=== PATIENT | female | born 1970 | race Caucasian/White ===

== ENCOUNTER 2021-01-16 07:45 | Inpatient (IN) | payer SELFPAY ==
[2021-01-16] MEDS ORDERED: Tamsulosin HCl 0.4 MG CAP PO SCH ×2 (09:00→17:00)
[2021-01-16 15:54] VITALS: BMI 34.8
[2021-01-16] MEDS: Sodium Chloride 0.9% 1,000 ML IV SCH (17:20)
[2021-01-16] MEDS ORDERED: Ketorolac Tromethamine 30 MG/ML VIAL IVP PRN (17:37)
[2021-01-16] MEDS ORDERED: Acetaminophen 325 MG TAB PO PRN (17:37)
[2021-01-16] MEDS ORDERED: Ondansetron PF 4 MG/2 ML Vial IVP PRN (17:37)
[2021-01-16] MEDS: Polyethylene Glycol 3350 17 GM Packet PO SCH (21:10)
[2021-01-16 23:40] LABS: SARS-CoV-2 PCR by NAA Not Detected (NotDetected)
[2021-01-17] MEDS: Sodium Chloride 0.9% 1,000 ML IV SCH ×4 (01:47→20:53)
[2021-01-17] MEDS: Levothyroxine 150 MCG TAB PO SCH (06:03)
[2021-01-17 06:19] LABS: Hemoglobin 12.2 g/dL (12.0-16.0); Mean Corpuscular HGB CONC 35.6 g/dL (32.0-36.0); Mean Corpuscular Hemoglobin 34.1 pg (27.0-31.0); Mean Corpuscular Volume 95.9 fL (78.0-98.0); Mean Platelet Volume 7.2 fL (7.4-10.4); Platelet Count 174 thou/uL (130-400); RBC Distribution Width 12.1 % (11.5-14.5); Red Blood Cell (RBC) Count 3.56 mill/uL (4.20-5.40); White Blood Cell (WBC) Count 6.6 thou/uL (4.8-10.8)
[2021-01-17 06:43] LABS: Anion Gap 12 mmol/L (10-20); BUN (Urea Nitrogen) 10 mg/dL (7.0-18.7); Calc. Creatinine Clearance 74 mL/min (70-130); Carbon Dioxide 21 mmol/L (22-29); Chloride 112 mmol/L (98-107); Potassium 3.8 mmol/L (3.5-5.1); Sodium 141 mmol/L (136-145)
[2021-01-17 06:44] LABS: Calcium 8.2 mg/dL (7.8-10.44); Cholesterol 221 mg/dl (< 200 Desired); Glucose 91 mg/dL (70-105); HDL Cholesterol 44 mg/dL (>60 Neg Risk); LDL Cholesterol, Calculated 156 mg/dL; Triglycerides 105 mg/dL (Less than 150)
[2021-01-17] MEDS ORDERED: Tamsulosin HCl 0.4 MG CAP PO SCH (09:00)
[2021-01-17 10:05] LABS: Bilirubin Negative (Negative); Blood, Urine 3+ (Negative); Clarity Turbid (Clear); Glucose, Urine (Dipstick) Normal (Negative); Ketone, Urine Negative (Negative); Leukocyte Negative Leu/uL (Negative); Nitrite Negative (Negative); Protein, Urine (Dipstick) 20 mg/dL (Neg-Trace); RBC/HPF Greater than 50 HPF (0-3); Specific Gravity, Urine 1.022 (1.002-1.036); Squamous Epithelial 0-3 HPF (0-3); Urobilinogen Normal mg/dL (Less than 2)
[2021-01-17 10:13] LABS: Bacteria/HPF 1+ HPF (None Seen); Yeast-Budding Rare HPF (None Seen)
[2021-01-17 11:03] LABS: Bacteria/HPF None Seen HPF (None Seen); Bilirubin Negative (Negative); Blood, Urine 2+ (Negative); Clarity Clear (Clear); Glucose, Urine (Dipstick) Normal (Negative); Ketone, Urine Negative (Negative); Leukocyte Negative Leu/uL (Negative); Nitrite Negative (Negative); Protein, Urine (Dipstick) Negative (Neg-Trace); RBC/HPF 0-3 HPF (0-3); Specific Gravity, Urine 1.006 (1.002-1.036); Squamous Epithelial 0-3 HPF (0-3); Urobilinogen Normal mg/dL (Less than 2); WBC/HPF 0-3 HPF (0-3); pH, Urine 5.5 (5.0-9.0)
[2021-01-17] MEDS ORDERED: Iothalamate Meglumine 60% 50 ML VIAL FS ONE (13:16)
[2021-01-17] MEDS ORDERED: SUGAMMADEX SODIUM 200 MG/2 ML VIAL ONE ×2 (13:19→14:32)
[2021-01-17] MEDS ORDERED: Fentanyl 100 MCG/2 ML VIAL ONE (13:19)
[2021-01-17] MEDS ORDERED: Midazolam HCl 2 mg/2 ml Vial ONE ×2 (13:47→13:48)
[2021-01-17] MEDS ORDERED: Labetalol HCl 100 MG/20 ML VIAL ONE ×2 (13:48→13:58)
[2021-01-17] MEDS ORDERED: Levofloxacin 500 mg/D5W 100 ml Premix Bag ONE (13:53)
[2021-01-17] MEDS ORDERED: Ondansetron PF 4 MG/2 ML Vial ONE (13:58)
[2021-01-17] MEDS ORDERED: PROPOFOL 200 MG/20 ML VIAL ONE (13:58)
[2021-01-17] MEDS ORDERED: Rocuronium Bromide 10 MG/ML (10ML VIAL) ONE (13:58)
[2021-01-17] MEDS ORDERED: Dexamethasone 20 MG/5 ML VIAL ONE (13:58)
[2021-01-17] MEDS ORDERED: cefTRIAXone\\ROCEPHIN 2 GM VIAL ONE (14:10)
[2021-01-17] MEDS ORDERED: Sodium Chloride 0.9% 100 ML ONE (14:10)
[2021-01-17] MEDS ORDERED: Phenazopyridine HCl 97.5 MG TABLET PO PRN (14:33)
[2021-01-17] MEDS ORDERED: Oxybutynin 5 MG TAB PO PRN (14:33)
[2021-01-17] MEDS ORDERED: HYDROcodone/Acetaminophen 5/325 mg Tablet PO PRN ×2 (14:33)
[2021-01-17] MEDS: cefTRIAXone\\ROCEPHIN 2 GM in Sodium Chloride 0.9% 100 ML IVPB SCH (16:16)
[2021-01-17] MEDS: Polyethylene Glycol 3350 17 GM Packet PO SCH (20:49)
[2021-01-18] MEDS: Levothyroxine 150 MCG TAB PO SCH (05:42)
[2021-01-18 06:47] LABS: Anion Gap 9 mmol/L (10-20); BUN (Urea Nitrogen) 10 mg/dL (7.0-18.7); Calc. Creatinine Clearance 83 mL/min (70-130); Calcium 8.3 mg/dL (7.8-10.44); Carbon Dioxide 25 mmol/L (22-29); Chloride 112 mmol/L (98-107); Glucose 111 mg/dL (70-105); Potassium 3.8 mmol/L (3.5-5.1); Sodium 142 mmol/L (136-145)
[2021-01-18] MEDS: Sodium Chloride 0.9% 1,000 ML IV SCH (08:34)
[2021-01-18 08:47] VITALS: BP 138/85; TEMP 97.7
[2021-01-18] MEDS: cefTRIAXone\\ROCEPHIN 2 GM in Sodium Chloride 0.9% 100 ML IVPB SCH (12:32)
== END 2021-01-18 14:11 | disposition home or self-care (01) | DRG 661 ==
LOC: T4-A 07:45
PROVIDERS: ADMIT Internal Medicine; ATTEND Internal Medicine
PROC: 0T778DZ Dilation of Left Ureter with Intraluminal Device, Via Natural or Artificial Opening Endoscopic (ICD-10-PCS; principal; 2021-01-17)
PROC: BT1F1ZZ Fluoroscopy of Left Kidney, Ureter and Bladder using Low Osmolar Contrast (ICD-10-PCS; 2021-01-17)
DX: N13.2 Hydronephrosis with renal and ureteral calculous obstruction (principal); E86.0 Dehydration; Z20.822 Contact with and (suspected) exposure to COVID-19; E03.9 Hypothyroidism, unspecified; E66.9 Obesity, unspecified; N17.9 Acute kidney failure, unspecified; Z79.890 Hormone replacement therapy; Z68.34 Body mass index [BMI] 34.0-34.9, adult
CPT/HCPCS: 36415; 74420; 76770; 80048; 80061; 81001; 83036; 84439; 84443; 85027; 87086; C2617; J0696; J1100; J1885; J1956; J2250; J2405; J2704; J3010; J3490; Q9961; U0003; U0005

== ENCOUNTER 2021-02-01 07:46 | Day surgery (SDC) | payer OTHER, SELFPAY ==
[2021-01-31 11:15] VITALS: BMI 44.4
[2021-02-01] MEDS ORDERED: Sodium Chloride 0.9% 100 ML ONE (08:19)
[2021-02-01] MEDS ORDERED: cefTRIAXone\\ROCEPHIN 2 GM VIAL ONE (08:19)
[2021-02-01] MEDS ORDERED: Midazolam HCl 2 mg/2 ml Vial ONE ×2 (08:50→10:15)
[2021-02-01] MEDS ORDERED: Ketorolac Tromethamine 30 MG/ML VIAL ONE (09:40)
[2021-02-01] MEDS ORDERED: Ondansetron PF 4 MG/2 ML Vial ONE ×2 (09:40→13:55)
[2021-02-01] MEDS ORDERED: PROPOFOL 200 MG/20 ML VIAL ONE (09:40)
[2021-02-01] MEDS ORDERED: Dexamethasone 20 MG/5 ML VIAL ONE (09:40)
[2021-02-01] MEDS ORDERED: Lidocaine 1% PF 5 ML VIAL ONE (09:40)
[2021-02-01] MEDS ORDERED: Glycopyrrolate 0.2 MG/ML 5 ML SYRINGE ONE (09:40)
[2021-02-01] MEDS ORDERED: Rocuronium Bromide 10 MG/ML (10ML VIAL) ONE (09:40)
[2021-02-01] MEDS ORDERED: Fentanyl 100 MCG/2 ML VIAL ONE (10:15)
[2021-02-01] MEDS ORDERED: SUGAMMADEX SODIUM 200 MG/2 ML VIAL ONE (10:22)
[2021-02-01] MEDS ORDERED: Iothalamate Meglumine 60% 30 ML VIAL FS ONE (10:44)
[2021-02-01] MEDS ORDERED: Phenazopyridine HCl 100 MG TAB ONE (11:39)
[2021-02-01] MEDS ORDERED: Oxybutynin 5 MG TAB ONE (11:39)
== END 2021-02-01 15:00 | disposition home or self-care (01) ==
LOC: SDC 07:46
PROVIDERS: ATTEND Urology
PROC: 0TC78ZZ Extirpation of Matter from Left Ureter, Via Natural or Artificial Opening Endoscopic (ICD-10-PCS; principal; 2021-02-01)
PROC: 0TC48ZZ Extirpation of Matter from Left Kidney Pelvis, Via Natural or Artificial Opening Endoscopic (ICD-10-PCS; principal; 2021-02-01)
PROC: 0T778DZ Dilation of Left Ureter with Intraluminal Device, Via Natural or Artificial Opening Endoscopic (ICD-10-PCS; principal; 2021-02-01)
DX: N13.2 Hydronephrosis with renal and ureteral calculous obstruction (principal); N28.1 Cyst of kidney, acquired; E03.9 Hypothyroidism, unspecified; Z79.899 Other long term (current) drug therapy
CPT/HCPCS: 74420; 82365; 88300; C2617; J0696; J1100; J1885; J2250; J2405; J2704; J3010; J3490

== ENCOUNTER 2021-08-01 11:54 | Outpatient (CLI) | payer SELFPAY ==
[2021-08-01 13:33] LABS: #Eosinphils 0.1 10x3/uL (0.0-0.5); #Monocytes 0.3 10x3/uL (0.0-1.1); #Neutrophils 5.6 10x3/uL (1.5-8.4); %Basophils 0.4 % (0.0-2.0); %Lymphocytes 17.9 % (18.0-47.0); %Monocytes 4.3 % (0.0-10.0); Hemoglobin 13.3 g/dL (12.0-15.5); Mean Corpuscular HGB CONC 32.4 g/dL (32.0-36.0); Mean Corpuscular Hemoglobin 31.7 pg (27.0-33.0); Mean Corpuscular Volume 97.6 fl (81.6-98.3); Mean Platelet Volume 9.4 fl (7.4-10.4); Platelet Count 253 10x3/uL (150-450); RBC Distribution Width 13.6 % (11.5-14.5); White Blood Cell (WBC) Count 7.4 10x3/uL (3.5-10.5)
[2021-08-01 14:13] LABS: Anion Gap 13 mmol/L (10-20); BUN (Urea Nitrogen) 12 mg/dL (7.0-18.7); Calc. Creatinine Clearance 0 mL/min (70-130); Calcium 9.7 mg/dL (7.8-10.44); Carbon Dioxide 27 mmol/L (22-29); Chloride 105 mmol/L (98-107); Glucose 102 mg/dL (70-105); Potassium 4.3 mmol/L (3.5-5.1); Sodium 141 mmol/L (136-145)
[2021-08-01 20:13] LABS: SARS-CoV-2 PCR by NAA Not Detected (NotDetected)
== END 2021-08-01 11:55 | disposition home or self-care (01) ==
LOC: LABBT 11:54
PROVIDERS: ATTEND Surgery
DX: Z01.812 Encounter for preprocedural laboratory examination (principal); C50.919 Malignant neoplasm of unspecified site of unspecified female breast; Z20.822 Contact with and (suspected) exposure to COVID-19
CPT/HCPCS: 80048; 85025; U0003; U0005

== ENCOUNTER 2021-08-04 05:59 | Day surgery (SDC) | payer OTHER ==
[2021-07-31 14:15] VITALS: BMI 40.6
[2021-08-04] MEDS ORDERED: ceFAZolin 2 GM/DEX 5% 100 ML BAG ONE (06:21)
[2021-08-04] MEDS ORDERED: Acetaminophen 500 MG TAB ONE (06:21)
[2021-08-04] MEDS ORDERED: Ketorolac Tromethamine 30 MG/ML VIAL ONE (06:21)
[2021-08-04] MEDS ORDERED: Bupivacaine PF 0.5% 30 ML VIAL ONE (06:27)
[2021-08-04] MEDS ORDERED: EPINEPHrine 1 MG/ML AMP ONE (06:27)
[2021-08-04] MEDS ORDERED: Propofol 1,000 MG/100 ML VIAL IV ONE (07:31)
[2021-08-04] MEDS ORDERED: Famotidine/PF 20 mg/2ml Vial ONE (07:31)
[2021-08-04] MEDS ORDERED: Midazolam HCl 2 mg/2 ml Vial ONE ×2 (07:31→07:47)
[2021-08-04] MEDS ORDERED: Fentanyl 100 MCG/2 ML VIAL ONE (07:31)
[2021-08-04] MEDS ORDERED: Ondansetron PF 4 MG/2 ML Vial ONE (07:59)
[2021-08-04] MEDS ORDERED: Metoclopramide HCl 10 MG/2 ML VIAL ONE (07:59)
[2021-08-04] MEDS ORDERED: Dexamethasone 20 MG/5 ML VIAL ONE (07:59)
[2021-08-04] MEDS ORDERED: PROPOFOL 200 MG/20 ML VIAL ONE (07:59)
[2021-08-04] MEDS ORDERED: Lidocaine 1% PF 5 ML VIAL ONE (07:59)
[2021-08-04] MEDS ORDERED: Promethazine HCl 25 MG/ML VIAL ONE (09:33)
== END 2021-08-04 12:05 | disposition home or self-care (01) ==
LOC: SDC 05:59
PROVIDERS: ATTEND Surgery
PROC: BH41ZZZ Ultrasonography of Left Breast (ICD-10-PCS; principal; 2021-08-04)
PROC: 07D63ZX Extraction of Left Axillary Lymphatic, Percutaneous Approach, Diagnostic (ICD-10-PCS; principal; 2021-08-04)
PROC: 0JH63WZ Insertion of Totally Implantable Vascular Access Device into Chest Subcutaneous Tissue and Fascia, Percutaneous Approach (ICD-10-PCS; principal; 2021-08-04)
PROC: 02HV33Z Insertion of Infusion Device into Superior Vena Cava, Percutaneous Approach (ICD-10-PCS; principal; 2021-08-04)
DX: C50.912 Malignant neoplasm of unspecified site of left female breast (principal); E03.9 Hypothyroidism, unspecified; Z17.1 Estrogen receptor negative status [ER-]; Z79.899 Other long term (current) drug therapy; Z88.5 Allergy status to narcotic agent
CPT/HCPCS: 71045; 88173; C1788; J0171; J1100; J1642; J1885; J2250; J2405; J2550; J2704; J2765; J3010; S0020; S0028

== ENCOUNTER 2021-08-11 13:09 | Outpatient (CLI) | payer OTHER | END 2021-08-11 13:10 | disposition home or self-care (01) | LOC: ULT 13:09 | PROVIDERS: ATTEND Internal Medicine Hematology & Oncology | DX: Z51.11 Encounter for antineoplastic chemotherapy (principal); C50.412 Malignant neoplasm of upper-outer quadrant of left female breast; I07.1 Rheumatic tricuspid insufficiency; I31.3 Pericardial effusion (noninflammatory); Z79.899 Other long term (current) drug therapy | CPT/HCPCS: 93306 ==

== ENCOUNTER 2021-08-14 09:02 | Outpatient (CLI) | payer OTHER | END 2021-08-14 09:03 | disposition home or self-care (01) | LOC: CT 09:02 | PROVIDERS: ATTEND Internal Medicine Hematology & Oncology | DX: C50.412 Malignant neoplasm of upper-outer quadrant of left female breast (principal); I31.3 Pericardial effusion (noninflammatory); N83.202 Unspecified ovarian cyst, left side; N83.8 Other noninflammatory disorders of ovary, fallopian tube and broad ligament; R93.89 Abnormal findings on diagnostic imaging of other specified body structures; Z98.890 Other specified postprocedural states | CPT/HCPCS: 71260; 74177; 78306; A9503 ==

== ENCOUNTER 2021-10-05 14:02 | Outpatient (CLI) | payer OTHER | END 2021-10-05 14:03 | disposition home or self-care (01) | LOC: BICULT 14:02 | PROVIDERS: ATTEND Internal Medicine Hematology & Oncology | DX: N83.202 Unspecified ovarian cyst, left side (principal); N83.291 Other ovarian cyst, right side | CPT/HCPCS: 76856 ==

== ENCOUNTER 2022-02-07 10:53 | Day surgery (SDC) | payer OTHER ==
[2022-02-07] MEDS ORDERED: Acetaminophen 500 MG TAB ONE (11:59)
[2022-02-07] MEDS ORDERED: diphenhydrAMINE 25 MG CAP ONE (11:59)
[2022-02-07 15:52] VITALS: TEMP 98.1
[2022-02-07 16:24] VITALS: BP 128/68
== END 2022-02-07 16:28 | disposition home or self-care (01) ==
LOC: ONC/OP 10:53
PROVIDERS: ATTEND Internal Medicine Hematology & Oncology
PROC: 30233N1 Transfusion of Nonautologous Red Blood Cells into Peripheral Vein, Percutaneous Approach (ICD-10-PCS; principal; 2022-02-07)
DX: D64.9 Anemia, unspecified (principal); D69.6 Thrombocytopenia, unspecified
CPT/HCPCS: 36430; 86850; 86900; 86901; J1642; P9016

== ENCOUNTER 2022-03-27 13:36 | Outpatient (CLI) | payer OTHER | END 2022-03-27 13:37 | disposition home or self-care (01) | LOC: BICMAMMO 13:36 | PROVIDERS: ATTEND Surgery | DX: N63.20 Unspecified lump in the left breast, unspecified quadrant (principal) | CPT/HCPCS: 77066; G0279 ==

== ENCOUNTER 2022-04-03 14:03 | Outpatient (CLI) | payer OTHER ==
[2022-04-03 16:48] LABS: #Monocytes 0.3 10x3/uL (0.0-1.1); %Basophils 0.4 % (0.0-2.0); %Eosinophils 0.7 % (0.0-6.0); %Monocytes 9.7 % (0.0-10.0); %Neutrophils 69.8 % (40.0-75.0); Hemoglobin 8.2 g/dL (12.0-15.5); Mean Corpuscular HGB CONC 30.5 g/dL (32.0-36.0); Mean Corpuscular Hemoglobin 35.2 pg (27.0-33.0); Mean Corpuscular Volume 115.5 fl (81.6-98.3); Mean Platelet Volume 10.2 fl (7.4-10.4); Platelet Count 140 10x3/uL (150-450); RBC Distribution Width 17.6 % (11.5-14.5); Red Blood Cell (RBC) Count 2.33 10x6/uL (3.90-5.03); White Blood Cell (WBC) Count 2.8 10x3/uL (3.5-10.5)
[2022-04-03 17:53] LABS: Anion Gap 18 mmol/L (10-20); BUN (Urea Nitrogen) 7 mg/dL (9.8-20.1); Calc. Creatinine Clearance 0 mL/min (70-130); Calcium 9.4 mg/dL (7.8-10.44); Carbon Dioxide 25 mmol/L (22-29); Chloride 102 mmol/L (98-107); Estimated GFR 91; Glucose 112 mg/dL (70-105); Potassium 3.8 mmol/L (3.5-5.1); Sodium 141 mmol/L (136-145)
== END 2022-04-03 14:04 | disposition home or self-care (01) ==
LOC: LABBT 14:03
PROVIDERS: ATTEND Surgery
DX: Z01.812 Encounter for preprocedural laboratory examination (principal); C50.812 Malignant neoplasm of overlapping sites of left female breast
CPT/HCPCS: 80048; 85025

== ENCOUNTER 2022-04-06 06:22 | Day surgery (SDC) | payer OTHER ==
[2022-04-05 11:10] VITALS: BMI 35.8
[2022-04-06] MEDS ORDERED: Acetaminophen 500 MG TAB ONE (10:19)
[2022-04-06] MEDS ORDERED: Midazolam HCl 2 mg/2 ml Vial ONE ×2 (10:25→11:50)
[2022-04-06] MEDS ORDERED: Midazolam HCl 2 mg/2 ml Vial SLOW IVP PRN (10:49)
[2022-04-06] MEDS ORDERED: Bupivacaine/Epinephrine 0.25% 30 ML VIAL ONE (11:42)
[2022-04-06] MEDS ORDERED: Isosulfan Blue 50 MG/5 ML VIAL ONE (11:42)
[2022-04-06] MEDS ORDERED: fentaNYL Citrate/PF 100 MCG/2 ML SYRINGE ONE (11:51)
[2022-04-06] MEDS ORDERED: Sodium Chloride 0.9% 100 ML ONE (11:56)
[2022-04-06] MEDS ORDERED: CEFAZOLIN 2 GM VIAL ONE (11:56)
[2022-04-06] MEDS ORDERED: PROPOFOL 200 MG/20 ML VIAL ONE (12:04)
[2022-04-06] MEDS ORDERED: Dexamethasone 20 MG/5 ML VIAL ONE (12:04)
[2022-04-06] MEDS ORDERED: Lidocaine 1% MPF 2 ML VIAL ONE (12:04)
[2022-04-06] MEDS ORDERED: Ondansetron PF 4 MG/2 ML Vial ONE (12:04)
[2022-04-06] MEDS ORDERED: HYDROmorphone 0.5 MG/0.5 ML SYRINGE ONE (14:21)
[2022-04-06] MEDS ORDERED: Promethazine HCl 25 MG/ML VIAL ONE (14:58)
== END 2022-04-06 16:33 | disposition home or self-care (01) ==
LOC: SDC 06:22
PROVIDERS: ATTEND Surgery
PROC: 0HBU0ZZ Excision of Left Breast, Open Approach (ICD-10-PCS; principal; 2022-04-06)
PROC: 07B60ZX Excision of Left Axillary Lymphatic, Open Approach, Diagnostic (ICD-10-PCS; principal; 2022-04-06)
DX: C50.412 Malignant neoplasm of upper-outer quadrant of left female breast (principal); E03.9 Hypothyroidism, unspecified; Z17.1 Estrogen receptor negative status [ER-]; Z86.16 Personal history of COVID-19; Z79.890 Hormone replacement therapy; Z88.5 Allergy status to narcotic agent
CPT/HCPCS: 19281; 76098; 78195; 88307; 88341; 88342; A9541; C1713; C1776; J0690; J1100; J1170; J2250; J2405; J2550; J2704; J3490; Q9968

== ENCOUNTER 2022-09-20 11:29 | Outpatient (CLI) | payer OTHER ==
[2022-09-20] MEDS ORDERED: Iopamidol 370 76% 100 ML VIAL ONE (11:59)
== END 2022-09-20 11:30 | disposition home or self-care (01) ==
LOC: CT 11:29
PROVIDERS: ATTEND Internal Medicine Hematology & Oncology
DX: C54.1 Malignant neoplasm of endometrium (principal); R91.1 Solitary pulmonary nodule; K76.89 Other specified diseases of liver; M79.9 Soft tissue disorder, unspecified; Z98.890 Other specified postprocedural states; Z90.710 Acquired absence of both cervix and uterus; Z85.3 Personal history of malignant neoplasm of breast
CPT/HCPCS: 71260; 74177

== ENCOUNTER 2023-07-11 08:51 | Outpatient (CLI) | payer MEDICAID, OTHER | END 2023-07-11 08:52 | disposition home or self-care (01) | LOC: BICMAMMO 08:51 | PROVIDERS: ATTEND Specialist | DX: Z08 Encounter for follow-up examination after completed treatment for malignant neoplasm (principal); Z85.3 Personal history of malignant neoplasm of breast | CPT/HCPCS: 77066; G0279 ==

== ENCOUNTER 2024-03-17 08:59 | Outpatient (CLI) | payer OTHER ==
[2024-03-17] MEDS ORDERED: Iopamidol 370 76% 100 ML VIAL ONE (13:04)
== END 2024-03-17 09:00 | disposition home or self-care (01) ==
LOC: CT 08:59
PROVIDERS: ATTEND Internal Medicine
DX: C50.412 Malignant neoplasm of upper-outer quadrant of left female breast (principal); C54.1 Malignant neoplasm of endometrium
CPT/HCPCS: 71260; 74177; 78306; A9503; Q9967

== ENCOUNTER 2025-02-26 08:09 | Outpatient (CLI) | payer MEDICAID ==
[2025-02-26] MEDS ORDERED: Iopamidol 370 76% 100 ML VIAL ONE (11:29)
[2025-02-26] MEDS ORDERED: GASTROGRAFIN 30 ML BOT ONE (11:29)
== END 2025-02-26 08:10 | disposition home or self-care (01) ==
LOC: CT 08:09
PROVIDERS: ATTEND Internal Medicine Hematology & Oncology
DX: C54.1 Malignant neoplasm of endometrium (principal); C50.412 Malignant neoplasm of upper-outer quadrant of left female breast; D70.9 Neutropenia, unspecified; D50.0 Iron deficiency anemia secondary to blood loss (chronic); D70.1 Agranulocytosis secondary to cancer chemotherapy; T45.1X5A Adverse effect of antineoplastic and immunosuppressive drugs, initial encounter; K63.89 Other specified diseases of intestine
CPT/HCPCS: 71260; 74177; 78306; A9503; Q9963; Q9967